=== PATIENT | male | born 1955 | race Caucasian/White ===

== ENCOUNTER → 2025-03-21 | Outpatient (CLI) | payer BC, SELFPAY ==
[2025-03-21 16:57] LABS: Hematocrit 50.1 % (40-54); Hemoglobin 15.9 g/dL (13.0-16.5); Immature Granulocytes Count 0.060 X10^3/uL (0.0-0.0); Mean Corp Hgb Conc 31.7 g/dL (32-36); Mean Corpuscular Volume 94.2 fL (80-94); Mean Platelet Vol. 10.5 fl (6.2-12.0); NRBC Flagged by Analyzer 0 % (0-5); Platelet Count 310 K/mm3 (150-450); RBC Distribution Width CV 14.3 % (11.6-14.6); RBC Distribution Width SD 49.3 fl (35.1-43.9); Red Blood Count 5.32 M/mm3 (4.6-6.2); White Blood Count 9.3 K/mm3 (4.4-11.0)
[2025-03-21 17:33] LABS: Microalbumin,Random Urine 179.0 mg/L (<20 mg/L)
[2025-03-21 17:51] LABS: AST(SGOT) 29 U/L (<=37); Alanine Aminotransfer ALT/SGPT 24 U/L (<=46); Albumin, Serum 4.7 g/dL (3.4-4.8); Alkaline Phosphatase 70 U/L (40-129); Anion Gap 17 (5-15); BUN 19 mg/dL (4-19); BUN/Creat Ratio 14.3 RATIO (10-20); Calcium,Total 9.7 mg/dL (7.6-11.0); Carbon Dioxide 20.1 mmol/L (21.0-32.0); Chloride 104 mmol/L (98-108); Globulin 3.0 g/dL (2.2-4.2); Glucose 154 mg/dL (70-99); Potassium 4.6 mmol/L (3.3-5.1); Vitamin D,25 Hydroxy 31.5 ng/mL (30-100)
[2025-03-21 20:25] LABS: Cholesterol 141 mg/dL (<=200); Low Density Lipoprotein Calc. 69 mg/dL; Triglycerides 155 mg/dL; Very Low Density Lipoprotein 31 mg/dL (5-40); cholesterol:hdl ratio screen 3.11
[2025-03-27 02:08] LABS: Egg, Whole 0.79 kU/L (Class II); Mussels 0.14 kU/L (Class 0/I)
== END | disposition home or self-care (01) ==
LOC: VSLAB 12:00
PROVIDERS: PCP Family Medicine; Referring Provider Family Medicine; Visit Provider Family Medicine
DX: K58.0 Irritable bowel syndrome with diarrhea (principal); E11.9 Type 2 diabetes mellitus without complications; E78.5 Hyperlipidemia, unspecified; I10 Essential (primary) hypertension; E55.9 Vitamin D deficiency, unspecified
CPT/HCPCS: 36415; 80053; 80061; 82043; 82306; 84443; 85025; 86003; 86005

== ENCOUNTER → 2025-04-09 | Outpatient (CLI) | payer MEDICARE, SELFPAY ==
--- NOTE | 2025-04-09 14:10 | CT_ITS ---
PROCEDURE: ABDOMEN/PELVIS WITH CONTRAST 04/09/2025 REASON FOR EXAM: LEFT AND RIGHT LOWER QUADRANT PAIN Abdominal pain. Hernia repair. Renal neoplasm. Removed bladder neoplasm. TECHNIQUE: Procedure Code: [id number] Modality: CT Procedure: ABDOMEN/PELVIS WITH CONTRAST Coronal and Sagittal reconstruction series were provided. CONTRAST: Isovue 300 VOLUME: 87 mL One or more dose reduction techniques were used (e.g., Automated exposure control, adjustment of the mA and/or kV according to patient size, use of iterative reconstruction technique. RADIATION DOSE SUMMARY: CTDlvol: 32 mGy DLP: 1243 mGycm COMPARISON: None. FINDINGS: Lung bases: Negative. ABDOMEN Liver: Mild fatty infiltration of the liver. Liver otherwise negative. Biliary system: Negative. Negative for intrahepatic or extrahepatic ductal dilatation. Gallbladder: Contains stones. negative for cholecystitis. Spleen: Negative. Pancreas: Negative. Adrenals: Negative. Kidneys: Right nephrectomy. negative for kidney stones, cysts or masses. Bowel: Gastrointestinal well opacify with oral contrast. Diverticulosis without diverticulitis. Negative for small or large-bowel obstruction. Appendix: Appendix negative. Vasculature: Mild atherosclerotic vascular calcifications of the abdominal aorta and its branches. Peritoneum / Retroperitoneum: Negative. PELVIS Lymph nodes: Mildly prominent left inguinal canal with no evidence of negative for inguinal or iliac adenopathy. Bladder: Bladder intact. Reproductive Organs: Moderately enlarged prostate. Bones and Soft Tissues: Left hip arthroplasty. Otherwise age appropriate appearance of the lumbar spine hips and pelvis. CT/Abdomen/Pelvis WITH Contrast IMPRESSION: Right nephrectomy. Prominent left inguinal canal without hernia. Reading Location: [id number]
== END | disposition home or self-care (01) ==
PROVIDERS: PCP Family Medicine; Referring Provider Surgery; Visit Provider Surgery
DX: R10.32 Left lower quadrant pain (principal); R10.31 Right lower quadrant pain
CPT/HCPCS: 74177; Q9967; A4216

== ENCOUNTER → 2025-04-11 | Outpatient (CLI) | payer MEDICARE, SELFPAY ==
--- NOTE | 2025-04-11 12:40 | RAD_ITS ---
PROCEDURE: KNEE 4 OR MORE VIEWS 04/11/2025 REASON FOR EXAM: Pain, decreased range of motion TECHNIQUE: Procedure Code: RADKN Modality: DX Procedure: KNEE 4 OR MORE VIEWS COMPARISON: None FINDINGS: No fracture or suspicious osseous lesion Moderate narrowing of the lateral compartment of the knee joint with preservation of the medial compartment and posterior patellar compartment No suspicious subchondral changes No joint effusion or suspicious soft tissue swelling RAD/Knee 4 or More Views IMPRESSION: Age consistent degenerative changes, no acute findings Reading Location: [id number]
== END | disposition home or self-care (01) ==
PROVIDERS: PCP Family Medicine; Referring Provider Nurse Practitioner Family; Visit Provider Nurse Practitioner Family
DX: S83.92XA Sprain of unspecified site of left knee, initial encounter (principal); X58.XXXA Exposure to other specified factors, initial encounter
CPT/HCPCS: 73564